=== PATIENT | female | born 1950 | race Caucasian/White ===

== ENCOUNTER 2018-12-31 09:44 | Emergency (ER) | payer MEDICARE, BC ==
[2018-12-31 10:37] VITALS: BP 132/74
--- NOTE | 2018-12-31 10:49 | UC ---
General HPI - HPI Summary HPI Summary: DAY 7 OF SINUS CONGESTION AND POST NASAL DRIP. NOW L SINUS DISCOMFORT. NO FEVER. SELF TXING WITH CLARITIN, NASAL STEROID SPRAY AND DAYQUIL/NYQUIL WITH NO RELIEF. LEAVING COUN[place] IN 2 DAYS. - History of Current Complaint Chief Complaint: UCGeneralIllness Stated Complaint: SINUS COMPLAINT Time Seen by Provider: 12/31/18 10:43 Hx Obtained From: Patient Onset/Duration: Gradual Onset Timing: Constant Pain Intensity: 0 Associated Signs & Symptoms: Negative: Fever, Headache - Allergy/Home Medications Allergies/Adverse Reactions: Allergies Allergy/AdvReac Type Severity Reaction Status Date / Time ibuprofen Allergy Hives Verified 12/31/18 10:31 Penicillins Allergy Rash Verified 12/31/18 10:31 Home Medications: Home Medications D-Methorphan/PE/Acetaminophen [Daytime Cold-Flu Relief Sftgl] 1 each PO ONCE 11/19 [History Confirmed 12/31/18] Dm/Acetaminophen/Doxylamine [Nighttime Cold-Flu Rlf Sftgl] 1 each PO ONCE [History Confirmed 12/31/18] Fluticasone NASAL SPRAY 50MCG* [Flonase NASAL SPRAY 50MCG*] 2 spray BOTH NARES DAILY 12/31/18 [History Confirmed 12/31/18] Pantoprazole TAB * [Protonix TAB*] 40 mg PO EVERY OTHER DAY 12/31/18 [History Confirmed 12/31/18] PMH/Surg Hx/FS Hx/Imm Hx - Additional Past Medical History Additional PMH: ALLERGIES GI/ History: Gastroesophageal Reflux - Surgical History Surgical History: Yes Surgery Procedure, Year, and Place: . T&A A CHILD. bilateral cataracts - Family History Known Family History: Negative: Respiratory Disease - Social History Alcohol Use: Weekly Alcohol Amount: 3 nights/week Substance Use Type: None Smoking Status (MU): Former Smoker Type: Cigarettes Have You Smoked in the Last Year: No When Did the Patient Quit Smoking/Using Tobacco: 1985 Review of Systems All Other Systems Reviewed And Are Negative: Yes ENT: Positive: Nasal Discharge, Sinus Congestion, Sinus Pain/Tenderness Physical Exam Triage Information Reviewed: Yes Appearance: Well-Appearing Vital Signs: Initial Vital Signs Temp 98.7 F 12/31/18 10:33 Pulse 73 12/31/18 10:33 Resp 16 12/31/18 10:33 BP 132/74 12/31/18 10:33 Pulse Ox 99 12/31/18 10:33 Vital Signs Reviewed: Yes Eyes: Positive: Conjunctiva Clear ENT: Positive: Pharynx normal, Nasal congestion, TMs normal, Sinus tenderness - L maxilla. Negative: Nasal drainage Neck: Positive: Supple, Nontender, No Lymphadenopathy Respiratory: Positive: Lungs clear, Normal breath sounds Cardiovascular: Positive: RRR Abdomen Description: Positive: Nontender Bowel Sounds: Positive: Present Musculoskeletal: Positive: ROM Intact Neurological: Positive: Alert Psychological: Positive: Age Appropriate Behavior Skin Exam: Normal Course/Dx - Diagnoses Provider Diagnosis: Sinus congestion, Cough Discharge - Sign-Out/Discharge Documenting (check all that apply): Patient Departure All imaging exams completed and their final reports reviewed: No Studies - Discharge Plan Condition: Stable Disposition: HOME Prescriptions: Benzonatate CAP* [Tessalon 100 MG CAP*] 100 mg PO TID PRN #15 cap MDD 3 PRN Reason: Cough DOXYcycline CAP(*) [DOXYcycline 100MG CAP(*)] 100 mg PO BID 10 Days #20 cap Patient Education Materials: Sinusitis (ED), Acute Cough (ED) Referrals: Davie Berrios MD [Primary Care Provider] - 01/10/19 Additional Instructions: START A DECONGESTANT FROM THE PHARMACIST PER LABEL. CONTINUE THE NASAL STEROID SPRAY. IF NOT BETTER IN 3 DAYS ADD THE ANTIBIOTIC(DOXYCYCLINE). ADD IT SOONER IF WORSENING. - Billing Disposition and Condition Condition: STABLE Disposition: Home
== END 2018-12-31 11:00 | disposition home or self-care (01) ==
LOC: UCCORT 09:44
DX: J34.89 Other specified disorders of nose and nasal sinuses (principal); R05 Cough; Z88.0 Allergy status to penicillin; Z87.891 Personal history of nicotine dependence
CPT/HCPCS: 99212; G0463